=== PATIENT | male | born 1995 | race Caucasian/White ===

== ENCOUNTER 2018-10-30 18:52 | Emergency (ER) | payer OTHER ==
[2018-10-30] MEDS: METHYLPREDNISOLONE 125 MG INJ IV (21:19)
[2018-10-30] MEDS: DIPHENHYDRAMINE 50 MG INJ IM (21:19)
[2018-10-30] MEDS: FAMOTIDINE 20 MG INJ IV (21:19)
[2018-10-30] MEDS: DEXAMETHASONE 10 MG/ML 1 ML INJ IM (22:23)
== END 2018-10-30 22:50 | disposition home or self-care (01) ==
LOC: FTE 22:50
DX: I10 Essential (primary) hypertension (principal); F17.210 Nicotine dependence, cigarettes, uncomplicated
CPT/HCPCS: 96372; 96374; 96375; 99284-25